=== PATIENT | male | born 1990 | race Caucasian/White ===

== ENCOUNTER 2016-12-27 19:51 | Emergency (ER) | payer OTHER ==
[~2016-12-27] VITALS: Ht 180.3 cm; Wt 86.0 kg
[2016-12-27] MEDS ORDERED: LORazepam 1MG TABLET ONE (20:17)
[2016-12-27] MEDS ORDERED: LORazepam 1MG TABLET PO ONE (20:30)
[2016-12-27 20:59] VITALS: BP 148/100
[2016-12-27] MEDS ORDERED: DEXAMETHASONE 4 MG TABLET ONE (21:44)
[2016-12-27] MEDS ORDERED: DEXAMETHASONE 4 MG TABLET PO ONE (22:00)
== END 2016-12-27 23:36 | disposition home or self-care (01) ==
LOC: ED 23:00
DX: R13.13 Dysphagia, pharyngeal phase (principal)
CPT/HCPCS: 71020; 74220; 93005; 99284

== ENCOUNTER 2016-12-28 19:06 | Emergency (ER) | payer OTHER ==
[~2016-12-28] VITALS: Ht 180.3 cm; Wt 87.6 kg
[2016-12-28] MEDS ORDERED: LORazepam 2 MG/ML, 1ML IVPush ONE (20:00)
[2016-12-28 20:34] LABS: BLOOD UREA NITROGEN 14 mg/dL (7-18)
[2016-12-28 22:29] VITALS: BP 146/93
== END 2016-12-28 22:33 | disposition home or self-care (01) ==
LOC: ED 22:18
DX: D72.829 Elevated white blood cell count, unspecified (principal); F41.1 Generalized anxiety disorder
CPT/HCPCS: 36415; 71020; 80048; 82040; 85025; 93005; 99285

== ENCOUNTER → 2018-11-28 | Outpatient (CLI) | payer OTHER | END | disposition home or self-care (01) | LOC: CFH 15:00 | PROVIDERS: ATTEND Family Medicine | DX: M25.78 Osteophyte, vertebrae (principal); M54.9 Dorsalgia, unspecified | CPT/HCPCS: 72148 ==